=== PATIENT | female | born 1990 | race Caucasian/White ===

== ENCOUNTER 2023-05-07 21:13 | Inpatient (IN) ==
[2023-05-07] MEDS ORDERED: Buffered Lidocaine 1% SYRIN 1 ml INTRADERM ONE (22:18)
[2023-05-07] MEDS ORDERED: Lactated Ringers 1000 ml BAG 1,000 ML IV ONE (22:18)
[2023-05-07] MEDS ORDERED: Promethazine INJ(RESTRICTED) 25 MG/ML 1 ml VIAL IV PRN (22:18)
[2023-05-07] MEDS ORDERED: miSOPROStol 100 mcg TAB PO SCH (23:00)
[2023-05-07] MEDS ORDERED: miSOPROStol 100 mcg TAB VAGINAL SCH (23:00)
[2023-05-07 23:41] LABS: Urine Benzodiazepine Screen None Detected (None Detect); Urine Opiates Screen None Detected (None Detect)
[2023-05-08] MEDS: Lactated Ringers 1000 ml BAG 1,000 ML IV SCH ×2 (01:55→20:22)
[2023-05-08 02:22] LABS: ABS Eosinophils 0.1 10^3/uL (0.0-0.5); ABS Lymphocytes 1.7 10^3/uL (1.0-4.8); ABS Monocytes 0.8 10^3/uL (0.0-0.9); ABS Neutrophils 6.5 10^3/uL (1.5-7.6); ABS Nucleated RBC 0.01 10^3/ul; Eosinophil % 0.7 %; Hematocrit 35.2 % (35-45); Hemoglobin 12.1 g/dL (11.5-14.3); Lymphocyte % 19.2 %; Mean Corpuscular Hemoglobin 28.6 pg (27-33); Mean Corpuscular Hgb Conc 34.3 g/dL (31-36); Mean Corpuscular Volume 83.4 fL (80-97); Mean Platelet Volume 8.4 fL (7.5-11.2); Nucleated Red Blood Cells % 0.1 /100 WBC (0.0-0.4); Platelet Count 265 10^3/uL (150-450); Red Blood Count 4.22 10^6/uL (3.63-4.92); White Blood Count 9.1 10^3/uL (3.8-11.8)
[2023-05-08] MEDS ORDERED: Oxytocin in LR 20,000 MILLI.UNIT/1,000 ML BAG IV SCH (07:45)
[2023-05-08] MEDS ORDERED: Lidocaine 1% w EPI 1:200,000 SDV 30 ML VIAL ONE (11:06)
[2023-05-08] MEDS ORDERED: Lidocaine 2% w/ EPI 1:200,000 MPF 20 ML SDV VIAL ONE ×2 (11:06→11:57)
[2023-05-08] MEDS ORDERED: OBEPIDURAL (200 ML) 200 ML EPIDURAL ONE ×2 (11:06→22:48)
[2023-05-08] MEDS ORDERED: Bupivacaine 0.25% SDV PF 10 ML VIAL INJ ONE (11:39)
[2023-05-08] MEDS ORDERED: fentaNYL 100 mcg/2 ml 50 MCG/ML VIAL ONE (11:39)
[2023-05-08] MEDS ORDERED: Sodium Citrate/Citric Acid LIQ 15 ML UDC PO PRN (12:20)
[2023-05-08] MEDS ORDERED: Phenylephrine 40 mcg/mL 10mL (400mcg) SYRINGE IV PUSH PRN ×2 (12:20)
[2023-05-08] MEDS ORDERED: Lactated Ringers 1000 ml BAG 1,000 ML IV ONE (12:20)
[2023-05-08] MEDS ORDERED: Lactated Ringers 1000 ml BAG 1,000 ML IV SCH (13:00)
[2023-05-08] MEDS ORDERED: OBEPIDURAL (200 ML) 200 ML EPIDURAL SCH (13:00)
[2023-05-08 13:24] LABS: Urine Appearance Cloudy; Urine Bilirubin Negative (Negative); Urine Blood 1+ (Negative); Urine Color Yellow; Urine Glucose Negative (Negative); Urine Ketones 1+ (Negative); Urine Nitrite Negative (Negative); Urine Protein 1+(30 mg/dL) (Negative); Urine Specific Gravity 1.021 (1.002-1.030); Urine Urobilinogen Negative (Negative)
[2023-05-08 13:56] LABS: Urine Bacteria Absent (Absent); Urine Red Blood Cell 3+(>10/hpf) (Absent); Urine Squamous Epithelial Cell Present (Absent); Urine White Blood Cell 1+(6-10/hpf) (Absent); Urine Yeast Present (Absent)
[2023-05-08] MEDS ORDERED: FAMOTIDINE 40 MG PO ONE (19:33)
[2023-05-08] MEDS: Ampicillin ADVAN 2 GM in NS 0.9% 100 ml BAG 100 ML IVPB SCH (21:25)
[2023-05-08] MEDS: Clindamycin 900 MG/50 **NS BAG 900 MG/50 ML BAG IV SCH (21:58)
[2023-05-08] MEDS ORDERED: GENTAMICIN ADULT IVPB SCH (22:30)
[2023-05-08] MEDS ORDERED: NS 0.9% IVPB SCH (22:30)
[2023-05-09] MEDS ORDERED: Dibucaine 1% OINT 28.35 GM TUBE PR PRN (00:47)
[2023-05-09] MEDS ORDERED: Witch Hazel PAD JAR TOPICAL PRN (00:47)
[2023-05-09] MEDS ORDERED: Lactated Ringers 1000 ml BAG 1,000 ML IV SCH (01:00)
[2023-05-09] MEDS: Ampicillin ADVAN 2 GM in NS 0.9% 100 ml BAG 100 ML IVPB SCH ×4 (02:57→21:07)
[2023-05-09] MEDS ORDERED: Lidocaine 1% VIAL 10 MG/ML VIAL 30 ML ONE (03:26)
[2023-05-09] MEDS: Clindamycin 900 MG/50 **NS BAG 900 MG/50 ML BAG IV SCH ×3 (05:54→21:47)
[2023-05-09 12:22] LABS: Hemoglobin 9.9 g/dL (11.5-14.3); Mean Corpuscular Hemoglobin 28.8 pg (27-33); Mean Corpuscular Hgb Conc 34.1 g/dL (31-36); Mean Corpuscular Volume 84.3 fL (80-97); Mean Platelet Volume 7.6 fL (7.5-11.2); Platelet Count 234 10^3/uL (150-450); Red Blood Count 3.44 10^6/uL (3.63-4.92); Red Cell Distribution Width 13.5 % (12-17); White Blood Count 19.6 10^3/uL (3.8-11.8)
[2023-05-09 13:20] LABS: ABS Lymphocytes 1.7 10^3/uL (1.0-4.8); ABS Monocytes 1.7 10^3/uL (0.0-0.9); ABS Neutrophils 16.2 10^3/uL (1.5-7.6); ABS Nucleated RBC 0.01 10^3/ul; Eosinophil % 0.1 %; Lymphocyte % 8.6 %
[2023-05-10 09:06] VITALS: BP 123/73
== END 2023-05-10 16:30 | disposition home or self-care (01) | DRG 560 ==
LOC: MCHOBOUT 21:13 → MCHOB 22:12
PROVIDERS: ADMIT Registered Nurse; ATTEND Registered Nurse